=== PATIENT | male | born 1955 ===

== ENCOUNTER → 2017-11-24 17:32 | Outpatient (CLI) | payer OTHER ==
[~2017-11-24 17:32] MED LIST: ACID REDUCER20 MG PO; FORTAMET1000 MG PO; GLUCOTROL10 MG PO
== END | disposition home or self-care (01) ==
LOC: LAB 17:32
DX: D69.6 Thrombocytopenia, unspecified (principal); D68.9 Coagulation defect, unspecified

== ENCOUNTER 2017-11-25 08:15 | Inpatient (IN) | payer OTHER ==
[~2017-11-25] VITALS: Ht 172.7 cm; Wt 91.2 kg
[2017-11-26] MEDS ORDERED: FORTAMET1000 MG PO (11:50)
[2017-11-26] MEDS ORDERED: GLUCOTROL10 MG PO (11:51)
[2017-11-26] MEDS ORDERED: ACID REDUCER20 MG PO (11:51)
== END 2017-12-06 18:04 | disposition home or self-care (01) | DRG 331 ==
LOC: EDUNIT# 11-26 09:30 → O/R 12-01 07:23 → SURG 12-01 07:23 → SURH 12-01 08:30 → SURG 12-01 19:27
PROVIDERS: Colon & Rectal Surgery
PROC: 0DJD4ZZ Inspection of Lower Intestinal Tract, Percutaneous Endoscopic Approach (ICD-10-PCS; 2017-12-01)
PROC: 07TC0ZZ Resection of Pelvis Lymphatic, Open Approach (ICD-10-PCS; 2017-12-01)
PROC: 0DJD8ZZ Inspection of Lower Intestinal Tract, Via Natural or Artificial Opening Endoscopic (ICD-10-PCS; 2017-12-01)
PROC: 0DTN0ZZ Resection of Sigmoid Colon, Open Approach (ICD-10-PCS; principal; 2017-12-01 08:30)
DX: C20 Malignant neoplasm of rectum (principal); I11.9 Hypertensive heart disease without heart failure; D50.0 Iron deficiency anemia secondary to blood loss (chronic); E11.65 Type 2 diabetes mellitus with hyperglycemia; I10 Essential (primary) hypertension

== ENCOUNTER → 2019-01-27 | Day surgery (SDC) | payer OTHER | END | disposition home or self-care (01) | LOC: ADM 01-18 10:15 → AMB-ENDOS 10:15 | DX: D12.4 Benign neoplasm of descending colon (principal); K64.1 Second degree hemorrhoids ==